=== PATIENT | male | born 2000 | race Caucasian/White ===

== ENCOUNTER 2019-11-15 15:57 | Emergency (ER) | payer BC ==
[~2019-11-15] VITALS: Ht 177.8 cm; Wt 97.5 kg
--- NOTE | 2019-11-15 16:00 | NUR ---
Patient came in bibra and lapd from home, danger to self, "i want to electrify myself in the bath tub". On room air, breathing evenly and unlabored. connected to the monitor and pulse ox. Sitter at bedside for constant monitoring. Will continue to monitor accordingly.
--- NOTE | 2019-11-15 16:01 | NUR ---
called security for wanding
--- NOTE | 2019-11-15 16:03 | NUR ---
urine collected and sent to lab
--- NOTE | 2019-11-15 16:05 | NUR ---
Security at bedside for wanding
[2019-11-15 16:20] LABS: BASOPHILS % (AUTO) 0.2 % (0.0-2.0); EOSINOPHILS % (AUTO) 0.2 % (0.0-6.0); HEMATOCRIT 49 % (39-51); HEMOGLOBIN 16.1 g/dL (13.5-17.5); LYMPHOCYTES # (AUTO) 2.2 /CMM (0.8-4.8); LYMPHOCYTES % (AUTO) 18.9 % (20.0-44.0); MEAN CORPUSCULAR HGB CONC 33 g/dl (31.0-36.0); MEAN CORPUSCULAR VOLUME 91 fL (80-96); MONOCYTES # (AUTO) 0.6 /CMM (0.1-1.30); MONOCYTES % (AUTO) 5.3 % (2.0-12.0); NEUTROPHILS # (AUTO) 8.9 /CMM (1.8-8.9); NEUTROPHILS % (AUTO) 75.4 % (43.0-81.0); PLATELET COUNT (AUTO) 257 /CMM (150-450); RED BLOOD CELL COUNT(AUTO) 5.33 MIL/uL (4.5-6.0); WHITE BLOOD COUNT (AUTO) 11.8 K/uL (4.3-11.0)
[2019-11-15 16:30] LABS: CALCIUM, SERUM 9.9 mg/dL (8.5-10.1); CARBON DIOXIDE 28 mmol/L (21-32); CHLORIDE 106 mmol/L (98-107); CREATININE 1.2 mg/dL (0.6-1.3); GLUCOSE 116 mg/dL (74-106); POTASSIUM 4.2 mmol/L (3.5-5.1); SODIUM SERUM 142 mmol/L (136-145); UREA NITROGEN, BLOOD 18 mg/dL (7-18)
[2019-11-15 16:39] LABS: ALANINE AMINOTRANSFERASE 52 U/L (12-78); ALCOHOL, BLOOD < 3 mg/dL (0-0); ALKALINE PHOSPHATASE 85 U/L (46-116); ASPARTATE AMINOTRANSFERASE 22 U/L (15-37); BILIRUBIN,DIRECT 0.2 mg/dL (0.0-0.2); BILIRUBIN,TOTAL 0.7 mg/dL (0.2-1.0); TOTAL PROTEIN, SERUM 7.7 g/dL (6.4-8.2)
[2019-11-15 16:41] LABS: ACETAMINOPHEN < 2 ug/ml (10-30)
--- NOTE | 2019-11-15 17:04 | NUR ---
KATHY BLACKMON [phone] LEFT [facility] [place].
--- NOTE | 2019-11-15 19:11 | NUR ---
PT'S PSYCH MD ABIMAEL PATTERSON CALLED TO GIVE #
--- NOTE | 2019-11-15 20:30 | NUR ---
Pt ok to be discharged per Dr Johnston. Patient discharged to home in stable condition. Written and verbal after care instructions given. Patient verbalizes understanding of instruction.Patient is awake and alert to self, day, and place. pt ambulatory with a steady gait. Pt picked up by mother.
[2019-11-15 22:24] VITALS: BP 119/76
== END 2019-11-15 21:30 | disposition home or self-care (01) ==
LOC: ER 16:01
DX: F32.9 Major depressive disorder, single episode, unspecified (principal); F41.9 Anxiety disorder, unspecified
CPT/HCPCS: 36415; 80048; 80076; 80305; 80307; 80329; 85025; 99283; G0480